=== PATIENT | male | born 1970 | race Caucasian/White ===

== ENCOUNTER 2018-01-19 01:43 | Emergency (ER) | payer SELFPAY ==
--- NOTE | 2018-01-19 01:59 | ERPHSYRPT ---
- History of Present Illness Time Seen by Provider: 01/19/18 01:55 Source: patient Exam Limitations: no limitations Physician History: patient accidental stabbed himself to right ankle with pocket knife while fishing approximately one hour prior to arrival. Bleeding was controlled and patient was able to ambulate with minimal difficulties. Patient does not remember last tetanus immunization Method of Injury: incised Occurred: just prior to arrival Quality: constant Severity of Pain-Max: mild Severity of Pain-Current: mild Lower Extremities Pain: foot: right Modifying Factors: Improves With: immobilization (improves), movement (course in ) Associated Symptoms: No unable to bear weight - Review of Systems Constitutional: No Fever, No Chills Eyes: No Symptoms Ears, Nose, & Throat: No Symptoms Respiratory: No Symptoms, No Cough, No Dyspnea Cardiac: No Symptoms, No Chest Pain, No Edema, No Syncope Abdominal/Gastrointestinal: No Symptoms, No Abdominal Pain, No Nausea, No Vomiting, No Diarrhea Genitourinary Symptoms: No Symptoms, No Dysuria Musculoskeletal: Injury (right foot laceration), No Back Pain, No Neck Pain Skin: No Rash Neurological: No Symptoms, No Dizziness, No Focal Weakness, No Sensory Changes Psychological: No Symptoms Endocrine: No Symptoms Hematologic/Lymphatic: No Symptoms Immunological/Allergic: No Symptoms All Other Systems: Reviewed and Negative - Physical Exam General Appearance: no apparent distress, alert Eyes, Ears, Nose, Throat Exam: moist mucous membranes Neck Exam: non-tender, supple Cardiovascular/Respiratory Exam: chest non-tender, normal breath sounds, regular rate/rhythm, no respiratory distress Gastrointestinal/Abdominal Exam: non-tender, guarding Back Exam: normal inspection, No vertebral tenderness Ankle Exam: right ankle: abrasions/laceration (1 cm laceration to the lateral aspect of mid right foot deep to subcutaneous) DTR - Lower Extremities Exam: knee (R): 2+, knee (L): 2+ Neuro/Tendon Exam: normal sensation, normal motor functions Mental Status Exam: alert, oriented x 3, cooperative Skin Exam: normal color, warm, dry SpO2 Interpretation: normal Oxygen Delivery: Room Air Procedures - Laceration/Wound Repair Right Foot Wound Location: Right, lower leg (ankle) Wound Length (cm): 1 Wound's Depth, Shape: superficial Wound Explored: contaminated Irrigated: Yes Hibiclens Prep: Yes Anesthesia: local, 1% Lidocaine Volume Anesthetic (ccs): 5 Wound Debrided: moderate Wound Repaired With: sutures Suture Size/Type: 5-0, nylon Number of Sutures: 4 Layer Closure?: No Sterile Dressing Applied?: Yes Splint Applied?: No Sling Applied?: No Ordered Tests: Medication Summary Discontinued Medications Generic Name Dose Route Start Last Admin Trade Name Elroy PRN Reason Stop Dose Admin Diphtheria/Tetanus/Acell Pertussis 0.5 ml 01/19/18 01:53 Adacel Vial IM 01/19/18 01:54 .ONCE ONE Lidocaine HCl 5 ml 01/19/18 01:53 Xylocaine 1% Hcl 20 Ml Mdv IJ 01/19/18 01:54 STAT ONE - Progress Progress: improved Counseled pt/family regarding: diagnosis - Departure Time of Disposition: 02:36 Departure Disposition: Home Clinical Impression: Laceration of right ankle Condition: Stable Critical Care Time: No Instructions: Laceration Repair With Stitches (DC) Additional Instructions: sutures may be removed in 10-14 days. Ice, elevate leg, decrease weightbearing for next1-2 days, along with Motrin 800 mg every 8 hours with food and/or Tylenol 1 g every 4 hours for pain/ swelling. Return for increased redness, pain, swelling, pus from wound, numbness, tingling , weakness or any problems
[2018-01-19 02:46] VITALS: PULSE 92
[2018-01-19] MEDS ORDERED: BACIGUENT PACKET ONE (02:58)
[2018-01-19] MEDS ORDERED: Adacel Vial IM ONE (02:59)
[2018-01-19] MEDS: Adacel Vial IM ONE (03:01)
[2018-01-19] MEDS: XYLOCAINE 1% HCL 20 ML MDV IJ ONE (03:02)
[2018-01-19 04:53] VITALS: BP 128/86; O2SAT 99
== END 2018-01-19 03:18 | disposition home or self-care (01) ==
LOC: ED 01:43
DX: S91.011A Laceration without foreign body, right ankle, initial encounter (principal); W26.0XXA Contact with knife, initial encounter; Y93.89 Activity, other specified
CPT/HCPCS: 12001; 90471; 90715; 96372; 99284; A9270-GY